=== PATIENT | female | born 1980 | race African-American/Black ===

== ENCOUNTER 2024-01-19 11:23 | Outpatient (CLI) | payer OTHER, SELFPAY ==
[2024-01-19 11:49] LABS: Hematocrit 27.4 % (37.0-47.0); Hemoglobin 7.9 g/dL (12.0-15.0); Immature Platelet Fraction Pct 9.4 % (0.9-11.2); Mean Corpuscular HGB Conc 28.8 g/dl (32-36); Mean Corpuscular Hemoglobin 18.9 pg (26-34); Mean Corpuscular Volume 65.7 fl (80-100); Platelet Count Result 316 k/mm3 (150-375); Red Blood Count 4.17 M/mm3 (4.2-5.4); Red Cell Distribution Width 26.7 % (11.5-14.5); White Blood Count 5.9 K/mm3 (4.5-10.0)
== END 2024-01-19 11:24 | disposition home or self-care (01) ==
LOC: ANHLAB 11:26
PROVIDERS: Visit Provider Nurse Practitioner Obstetrics & Gynecology
DX: N93.9 Abnormal uterine and vaginal bleeding, unspecified (principal)
CPT/HCPCS: 36415; 85027; 85055

== ENCOUNTER 2024-02-01 13:52 | Outpatient (CLI) | payer OTHER, SELFPAY ==
--- NOTE | ~2024-02-01 | US_ITS ---
EXAMINATION: US pelvic complete w TV DATE: 02/01/2024 14:51 INDICATION: Abnormal uterine and vaginal bleeding. TECHNIQUE: Multiple transabdominal and transvaginal sonographic images of the pelvis were obtained. COMPARISON: None. FINDINGS: TRANSABDOMINAL ULTRASOUND: The uterus measures 11.2 x 7.0 x 5.8 cm. There is no free fluid in the pelvis. TRANSVAGINAL ULTRASOUND: The endometrial complex measures 10 mm in thickness. There is a 2.6 cm intramural fibroid. There is a 4.4 cm submucosal fibroid. The right ovary measures 1.8 x 1.1 x 1.8 cm. The left ovary is not visual ized. IMPRESSION: 1. Uterine fibroids. Reviewed, dictated and finalized at location E. IMPRESSION: 1. Uterine fibroids.
== END 2024-02-01 13:53 | disposition home or self-care (01) ==
PROVIDERS: Visit Provider Nurse Practitioner Obstetrics & Gynecology
DX: D25.1 Intramural leiomyoma of uterus (principal); D25.0 Submucous leiomyoma of uterus; N93.9 Abnormal uterine and vaginal bleeding, unspecified
CPT/HCPCS: 76830; 76856

== ENCOUNTER 2024-02-15 16:23 | Outpatient (CLI) | payer OTHER, SELFPAY ==
[2024-02-15 17:34] LABS: Hematocrit 23.1 % (37.0-47.0); Immature Platelet Fraction Pct 6.1 % (0.9-11.2); Mean Corpuscular HGB Conc 27.7 g/dl (32-36); Mean Corpuscular Hemoglobin 17.9 pg (26-34); Mean Corpuscular Volume 64.5 fl (80-100); Platelet Count Result 411 k/mm3 (150-375); Red Blood Count 3.58 M/mm3 (4.2-5.4); Red Cell Distribution Width 25.2 % (11.5-14.5); White Blood Count 7.4 K/mm3 (4.5-10.0)
[2024-02-15 17:55] LABS: Hemoglobin 6.4 g/dL (12.0-15.0)
== END 2024-02-15 16:24 | disposition home or self-care (01) ==
LOC: ANHLAB 16:24
PROVIDERS: Visit Provider Obstetrics & Gynecology
DX: N93.9 Abnormal uterine and vaginal bleeding, unspecified (principal); D64.9 Anemia, unspecified
CPT/HCPCS: 36415; 85027; 85055; 86850; 86900; 86901; 86923

== ENCOUNTER 2024-02-17 07:44 | Outpatient (RCR) | payer OTHER, SELFPAY ==
[2024-02-17] VITALS (11 sets, daily range): BP systolic 139–150; BP diastolic 84–102; PULSE 75–87; RESP 12–16; TEMP 36.2–37.2; O2SAT 98–100
[2024-02-17] MEDS: FAMOTIDINE 20 MG TABLET PO (08:27)
[2024-02-17] MEDS: SODIUM CHLORIDE 0.9% IV 250 ML 30 ML IV CONT (08:27)
[2024-02-17] MEDS: ACETAMINOPHEN 325 MG TABLET 650 MG PO (08:27)
[2024-02-17] MEDS: HYDROCORTISONE SODIUM SUCCINATE 100 MG/2 ML VIAL 50 MG IV PUSH (08:31)
[2024-02-17 09:47] LABS: Hematocrit 23.9 % (37.0-47.0); Immature Platelet Fraction Pct 6.5 % (0.9-11.2); Mean Corpuscular HGB Conc 27.6 g/dl (32-36); Mean Corpuscular Hemoglobin 17.6 pg (26-34); Mean Corpuscular Volume 63.9 fl (80-100); Platelet Count Result 377 k/mm3 (150-375); Red Blood Count 3.74 M/mm3 (4.2-5.4); Red Cell Distribution Width 25.2 % (11.5-14.5); White Blood Count 5.5 K/mm3 (4.5-10.0)
[2024-02-17 10:12] LABS: Hemoglobin 6.6 g/dL (12.0-15.0)
--- NOTE | 2024-02-17 11:08 | ECG_ITS ---
[facility] [address] Test Date: 2024-02-17 Pat Name: Александр Cool Department: Room: Gender: F Stock Room Manager: NIRAJ : 1980 Requested By: Andrae Richards Order Number: [id number] Reading MD: Jose Bear D.O. Measurements Intervals [place] Rate: 77 P: 52 [place]: 175 QRS: 13 QRSD: 84 T: 12 QT: 417 QTc: 475 Interpretive Statements SINUS RHYTHM POSSIBLE LEFT ATRIAL ENLARGEMENT DELAYED PRECORDIAL R/S TRANSITION BASELINE ARTIFACT- I, III BORDERLINE ECG No previous ECG available for comparison Electronically Signed On 02-17-2024 11:49:36 CDT by Jose Bear D.O.
== END 2024-05-17 23:59 | disposition home or self-care (01) ==
LOC: ANHCPCTRAN 07:44
PROVIDERS: Visit Provider Obstetrics & Gynecology
DX: D50.0 Iron deficiency anemia secondary to blood loss (chronic) (principal); N93.9 Abnormal uterine and vaginal bleeding, unspecified
CPT/HCPCS: 36415; 36430; 85027; 85055; 86923; 93005; A9270; J1720; J7050; P9016

== ENCOUNTER 2024-02-21 07:43 | Outpatient (CLI) | payer OTHER, SELFPAY ==
[2024-02-21 08:02] LABS: Hematocrit 30.4 % (37.0-47.0); Hemoglobin 8.8 g/dL (12.0-15.0); Immature Platelet Fraction Pct 7.4 % (0.9-11.2); Mean Corpuscular HGB Conc 28.9 g/dl (32-36); Mean Corpuscular Hemoglobin 19.5 pg (26-34); Mean Corpuscular Volume 67.4 fl (80-100); Platelet Count Result 262 k/mm3 (150-375); Red Blood Count 4.51 M/mm3 (4.2-5.4); Red Cell Distribution Width 26.1 % (11.5-14.5); White Blood Count 6.3 K/mm3 (4.5-10.0)
== END 2024-02-21 07:44 | disposition home or self-care (01) ==
PROVIDERS: Visit Provider Obstetrics & Gynecology
DX: Z01.818 Encounter for other preprocedural examination (principal); D50.0 Iron deficiency anemia secondary to blood loss (chronic); D25.9 Leiomyoma of uterus, unspecified
CPT/HCPCS: 36415; 85027; 85055; 86850; 86900; 86901

== ENCOUNTER 2024-02-22 00:53 | Day surgery (SDC) | payer OTHER, SELFPAY ==
[2024-02-17 08:25] VITALS: BMI 38.1
--- NOTE | 2024-02-17 08:33 | PC.NURSE ---
Report to the Outpatient Waiting Room, entrance under the green pavilion located off [facility], at time _0600_ on date _[id number]_. Planned Procedure Time: _0730_. Time changes happen often and if your time is changed the preop area will call you the afternoon before. - You and your visitor will be asked to self-screen and do not enter if you have any COVID symptoms. - A mask is optional within the hospital at this time. Patients may have clear liquids (water, carbonated beverages, clear teas, apple juice) until 3 hours prior to surgery with a maximum of 20 ounces. - No food from midnight until time of surgery Take the following medications with a SIP of water the morning of surgery: __None DO NOT STOP ANY OF YOUR OTHER PRESCRIPTION MEDICATIONS PRIOR TO SURGERY ?EXCEPT THE FOLLOWING Medications to discontinue per physician None Date to take last dose Please no make-up, nail chinese, hairspray, perfume, deodorant, or body powder the day of surgery. No jewelry (including any body piercings) or valuables the day of surgery, leave them at home. Please take a shower or bath the night before, or the morning of, surgery with an antibacterial soap. Wear comfortable, loose fitting clothing. - Jewelry must be removed prior to entering the operating room. Rings and piercings that are not removed may be cut off. - The hospital will not accept responsibility for valuables. - Please leave all valuables, including medications, at home the day of surgery. If you are going home after surgery, a licensed contract driver must drive you home. - NO public transportation without another adult if you receive anesthesia. - We recommend that an adult stay with you for 24 hours following discharge. - We also recommend that you do not drive, make important decision, drink alcoholic beverages, or take any drugs that were not prescribed by your health care provider for at least 24 hours after your discharge time. Follow any additional instructions given to you from your surgeon. If you or anyone in your household have experienced Covid symptoms in the past week, please notify your surgeon or the nurse liaison at the phone number below for possible testing. Telephone instructions given to _Александр__and asked if any additional questions and then verbalized understanding. Patient advised to call surgeon office or pre surgery nurse liaison [phone] if any additional questions.
--- NOTE | 2024-02-21 15:34 | PM.IMHP ---
H&P: HPI History of Present Illness Date/Time: 02/21/24 15:34 PMFSH Past Medical History Medical History (Updated 02/22/24 @ 06:47 by Stevie Storey MD) delivery delivered Fibroid uterus Hypertension Iron deficiency anemia secondary to blood loss (chronic) Obesity Surgical History Surgical History H/O dilation and curettage History of section x 2 Family History Family History Father Hypertension Depression Mother Hypertension Cancer Sibling Depression Grandparent Cancer Grandparent Heart disease Social History Social History Smoking status: Never smoker Living arrangements: with family Spiritual care concerns: No Meds Home Medications and Allergies Home Medications Medication Instructions Recorded Confirmed Type amlodipine 10 mg tablet 10 mg PO HS 01/19/24 02/17/24 History ferrous sulfate 325 mg (65 mg 325 mg PO DAILY 01/19/24 02/17/24 History iron) tablet (Feosol) lisinopril 10 mg tablet 10 mg PO HS 01/19/24 02/17/24 History metronidazole 500 mg tablet 500 mg PO Q12H #14 tabs 02/17/24 Rx progesterone micronized 200 mg 200 mg PO DAILY 02/17/24 02/17/24 History capsule (Prometrium) Allergies Allergy/AdvReac Type Severity Reaction Status Date / Time No Known Allergies Allergy Verified 02/22/24 06:12
[2024-02-22] VITALS (8 sets, daily range): BP systolic 98–133; BP diastolic 66–90; PULSE 66–88; RESP 12–20; TEMP 36.1–36.9; O2SAT 96–99; BMI 37.4
[2024-02-22] MEDS: ACETAMINOPHEN 500 MG TABLET 1000 MG PO (06:42)
[2024-02-22] MEDS: KETOROLAC 15 MG/ML VIAL (*BKC) IV PUSH (06:42)
--- NOTE | 2024-02-22 06:46 | WPDANESEPPF ---
Anes - Initial Pre Proc Eval Procedure: Operation Date: 02/22/24 07:30 Proposed Procedures p Robotic Assisted Total Vaginal Hysterectomy with Bilateral Salpingectomy, Possible Bilateral Salpingo-oophorectomy - Александр Carmona MD Date/Time: 02/22/24 06:46 Surgeon: Александр Carmona MD Pre Op Diagnosis: symptomatic fibroid uterus,anemia Patient Data Age: 43 Gender: F Height: 1.6 m Weight: 95.8 kg Allergies Allergy/AdvReac Type Severity Reaction Status Date / Time No Known Allergies Allergy Verified 02/22/24 06:12 Home Medications Medication Instructions Recorded Confirmed Type amlodipine 10 mg tablet 10 mg PO HS 01/19/24 02/17/24 History ferrous sulfate 325 mg (65 mg 325 mg PO DAILY 01/19/24 02/17/24 History iron) tablet (Feosol) lisinopril 10 mg tablet 10 mg PO HS 01/19/24 02/17/24 History metronidazole 500 mg tablet 500 mg PO Q12H #14 tabs 02/17/24 Rx progesterone micronized 200 mg 200 mg PO DAILY 02/17/24 02/17/24 History capsule (Prometrium) Patient hx anesthesia problems: none Family hx anesthesia problems: none Results Review: All pre-operative results and documents have been reviewed as part of the pre-operative evaluation. [facility] Past Medical History Medical History (Updated 02/22/24 @ 06:47 by Stevie Storey MD) delivery delivered Fibroid uterus Hypertension Iron deficiency anemia secondary to blood loss (chronic) Obesity Surgical History Surgical History H/O dilation and curettage History of section x 2 Family History Family History Father Hypertension Depression Mother Hypertension Cancer Sibling Depression Grandparent Cancer Grandparent Heart disease Social History Social History Smoking status: Never smoker Living arrangements: with family Spiritual care concerns: No Anes - Eval Final PreProcedure Day of Procedure 02/22/24 06:46 Patient weight: obese Heart: regular rate and rhythm Lungs: clear to auscultation Airway: Mallampati scale class II Neurological: alert and oriented Last oral intake: >/= 8 hours ASA classification: II Emergent: no Anesthetic plan: proceed Anesthesia type and monitoring: general GIVS and standard monitoring Results Review: All pre-operative results and documents have been reviewed as part of the pre-operative evaluation. Informed Consent: The patient's anesthetic plan and its attendant risks and benefits were discussed with the patient/family/POA. Questions were solicited and answers provided to the satisfaction of the patient/family/POA.
[2024-02-22] MEDS: SCOPOLAMINE 1 MG PATCH 1 PATCH TRANSDERM (07:14)
[2024-02-22] MEDS: LACTATED RINGERS 1,000 ML 30 ML IV CONT ×2 (07:17→10:26)
--- NOTE | 2024-02-22 07:21 | WPDHPUPDATE1 ---
History and Physical Update Update Date/Time: 02/22/24 07:21 History and Physical has been reviewed, including an updated exam of the patient. There are NO changes in the patient's condition. Risks, benefits, and alternatives have been discussed and questions answered. Patient agrees to proceed with procedure. Since last visit she has received 2 units PRBC, follow up h/h 8.05/18. Will proceed with robotic assisted laparoscopic hysterectomy with bilateral salpingectomy, possible oophorectomy.
[2024-02-22] MEDS: ceFAZolin 2 GM/D5W 50 ML 2 GM/50 ML BAG IVPB (07:30)
[2024-02-22] MEDS: BUPivacaine HCL 0.5% 10 ML AMP 20 ML INFILTRATE (07:55)
--- NOTE | 2024-02-22 10:31 | P.OPB_ITS ---
Procedure Note - Brief Procedure Note - Brief Date of procedure: 02/22/24 symptomatic fibroid uterus,anemia Post-op diagnosis: Same Procedure performed: Robotic assisted laparoscopic hysterectomy with bilateral salpingectomy. Surgeon: Александр Carmona MD Spa Receptionist: Balwinder Anesthesia: GETA Findings: Enlarged uterus with subserosal and a large degenerating submucosal fibroid. Normal ovaries bilateral. Estimated blood loss (mL): 50 Urine output (mL): 200 Drains: No Packing: No Pathology: Yes (Uterus bivalved with cervix and right and left fallopian tubes) Complications: No immediate complications Condition: Stable Disposition: PACU
[2024-02-22] MEDS: fentaNYL CITRATE INJ (*CRX) 100 MCG/2 ML VIAL 25 MCG IV PUSH ×4 (10:48→11:34)
--- NOTE | 2024-02-22 11:44 | OBPPTRN ---
Patient transferred to post room #283 via stretcher. Support person present. Oriented to unit, room, information board, rooming in, admission packet and security measures. Patient verbalizes understanding.
[2024-02-22] MEDS: HYDROcodone/acetaminophen (*CRX) 5-325 MG TABLET 1 TAB PO ×2 (12:10→20:23)
[2024-02-22] MEDS: SIMETHICONE 80 MG TAB.CHEW PO ×3 (12:10→23:30)
[2024-02-22] MEDS: DEXTROSE 5%/LACTATED RINGERS 1,000 ML 125 ML IV CONT (12:33)
[2024-02-22] MEDS: KETOROLAC 30 MG/ML VIAL (*BKC) IV PUSH ×2 (13:14→20:22)
[2024-02-22] MEDS: MORPHINE SULFATE (*CRX) 4 MG/ML INJ IV PUSH (14:09)
[2024-02-22] MEDS: ceFAZolin 1 GM/NS 50 ML 1 GM/50 ML BAG IVPB ×2 (15:02→23:30)
[2024-02-22] MEDS: HYDROcodone/acetaminophen (*CRX) 10-325 MG TABLET 1 TAB PO (17:07)
[2024-02-22] MEDS: amLODIPine BESYLATE 5 MG TABLET 10 MG PO (20:23)
[2024-02-22] MEDS: lisinopriL 10 MG TABLET PO (20:23)
[2024-02-23 04:00] VITALS: BP 126/82; PULSE 74; RESP 18; TEMP 36.8; O2SAT 98
[2024-02-23] MEDS: KETOROLAC 30 MG/ML VIAL (*BKC) IV PUSH (04:06)
[2024-02-23] MEDS: HYDROcodone/acetaminophen (*CRX) 10-325 MG TABLET 1 TAB PO ×4 (04:10→19:41)
[2024-02-23 04:41] LABS: Basophils Percent Auto 0.2 % (0.2-1.2); Hematocrit 29.7 % (37.0-47.0); Hemoglobin 8.6 g/dL (12.0-15.0); Immature Granulocyte Absolute 0.05 K/mm3 (0.00-0.031); Immature Granulocyte Percent A 0.4 % (0-0.5); Immature Platelet Fraction Pct 9.6 % (0.9-11.2); Lymphocytes Percent Auto 13.5 % (18.3-44.2); Mean Corpuscular Hemoglobin 19.6 pg (26-34); Mean Corpuscular Volume 67.7 fl (80-100); Monocytes Percent Auto 8.2 % (2.6-8.5); Neutrophils Absolute Auto 9.8 K/mm3 (1.3-6.7); Neutrophils Percent Auto 77.7 % (45.5-73.1); Platelet Count Result 237 k/mm3 (150-375); Red Blood Count 4.39 M/mm3 (4.2-5.4); Red Cell Distribution Width 26.6 % (11.5-14.5); White Blood Count 12.6 K/mm3 (4.5-10.0)
[2024-02-23 05:07] LABS: Anisocytosis 2+; Hypochromasia 1+; Microcytosis 1+ (NORMAL); Platelet Estimate Adequate (Adequate); Schistocytes Rare
--- NOTE | 2024-02-23 07:55 | WPDANESPN ---
Anes - Prog Note Post-Op Date/Time: 02/23/24 07:55 Cardiovascular status: normal Respiratory status: normal Airway patency: baseline Mental status: baseline Post-Op hydration status: normal Vital Signs: Last Vital Signs Temp 36.8 C 02/23/24 04:00 Pulse 74 02/23/24 04:00 Resp 18 02/23/24 04:00 BP 126/82 02/23/24 04:00 Pulse Ox 98 02/23/24 04:00 O2 Del Method Room Air 02/22/24 19:00 O2 Flow Rate 10 02/22/24 10:47 Pain Score (VAS): 01/26 I/O: Intake & Output 02/22/24 02/22/24 02/23/24 15:59 23:59 07:59 Intake Total 150 50 850 Output Total 555 800 Balance -405 50 50 Laboratory Tests 02/23/24 04:18 02/23/24 04:18 WBC 12.6 H RBC 4.39 Hgb 8.6 L Hct 29.7 L MCV 67.7 L MCH 19.6 L MCHC 29.0 L RDW 26.6 H Plt Count 237 MPV TNP Immature Gran % (Auto) 0.4 Neut % (Auto) 77.7 H Lymph % (Auto) 13.5 L [place] % (Auto) 8.2 Eos % (Auto) 0.0 Baso % (Auto) 0.2 Lymph # (Auto) 1.70 [place] # (Auto) 1.0 H Eos # (Auto) 0.0 Baso # (Auto) 0.0 Abs Immat Gran (auto) 0.05 H Absolute Neuts (auto) 9.8 H Absolute Nucleated RBC 0.000 Nucleated RBC % 0.0 Platelet Estimate Adequate % Immature Plt Fraction 9.6 Hypochromasia 1+ Anisocytosis 2+ Microcytosis 1+ Schistocytes Rare Post-procedural complaints: none Patient Feedback: Patient satisfied with anesthetic care.
[2024-02-23 08:20] VITALS: BP 106/67; PULSE 71; RESP 18; TEMP 36.6; O2SAT 98
[2024-02-23] MEDS: FERROUS SULFATE 325 MG TABLET DR PO (08:54)
[2024-02-23] MEDS: ceFAZolin 1 GM/NS 50 ML 1 GM/50 ML BAG IVPB (08:54)
[2024-02-23] MEDS: HYDROcodone/acetaminophen (*CRX) 5-325 MG TABLET 1 TAB PO (08:54)
[2024-02-23] MEDS: SIMETHICONE 80 MG TAB.CHEW PO ×3 (08:54→19:41)
--- NOTE | 2024-02-23 09:54 | PM.GYNPNOP ---
TRUCK SALES REPRESENTATIVE - A/P Assessment and plan (1) Status post hysterectomy: Code(s): Z90.710 - Acquired absence of both cervix and uterus Status: Acute Assessment and Plan: postop day 1. Encourage ambulation. Encourage regular diet. Anticipate discharge later today. Discussed her surgery again with her. Hemoglobin stable. Postoperative Procedures: Procedures Operation Date: 02/22/24 07:30 Actual Procedure Side Surgeon p Robotic Assisted Total Vaginal Hysterectomy with Bilateral Salpingectomy Bilateral Александр Carmona MD Time Spent With Patient Time: Total time spent is greater than 50% in coordination of care (as documented) at patient's floor/unit and/or counseling patient: Time with patient: less than 15 minutes TRUCK SALES REPRESENTATIVE- PN:Subj Post-Op Subjective Date/time seen: 02/23/24 09:54 Interval history: She complains of gas pain. She has not ambulated. Catheter removed this morning. No nausea. Tolerated water. Review of Systems Review of Systems: All systems reviewed & are unremarkable except as noted in HPI and below Cardiovascular: Cardiovascular: Reports no additional cardiovascular complaints Respiratory: Respiratory: Reports no additional respiratory complaints Gastrointestinal: Gastrointestinal: Denies nausea and Denies vomiting Genitourinary: Genitourinary: Reports no additional female genitourinary complaints Musculoskeletal: Musculoskeletal: Reports no additional musculoskeletal complaints Exam Const: Orientation/consciousness: oriented to person, oriented to place and oriented to time Resp: Auscultation: clear to auscultation bilaterally Cardio: Rate: regular rate Rhythm: regular rhythm GI: GI Palp: Yes Soft to palpation Auscultation: normal bowel sounds Other: Good bowel sounds throughout. We distended. Incisions intact appropriate tenderness no drainage. Neuro: General: oriented to person, oriented to place and oriented to time Extrem: General: no calf tenderness Psych: Mental Status: mental status grossly normal TRUCK SALES REPRESENTATIVE - PN: Obj Data Vital Signs Vital Signs: Vital Signs - 24 hr 02/22/24 10:32 02/22/24 10:47 02/22/24 11:02 Temperature 97.6 F Pulse Rate 66 66 69 Respiratory Rate 20 20 20 Blood Pressure 98/66 L 121/73 115/72 Pulse Oximetry 98 97 99 Oxygen Delivery Simple Face Mask Simple Face Mask Room Air Oxygen Flow Rate 10 10 02/22/24 11:17 02/22/24 11:32 02/22/24 11:50 Temperature 97 F L Pulse Rate 70 68 75 Respiratory Rate 17 12 16 Blood Pressure 121/82 122/79 132/90 Pulse Oximetry 98 99 96 Oxygen Delivery Room Air Room Air Oxygen Flow Rate 02/22/24 12:00 02/22/24 17:08 02/22/24 19:00 Temperature 98.5 F Pulse Rate 88 Respiratory Rate 18 Blood Pressure 133/90 Pulse Oximetry 97 Oxygen Delivery Room Air Room Air Oxygen Flow Rate 02/22/24 20:00 02/23/24 04:00 02/23/24 08:20 Temperature 98.3 F 98.2 F 97.8 F Pulse Rate 79 74 71 Respiratory Rate 18 18 18 Blood Pressure 122/78 126/82 106/67 Pulse Oximetry 98 98 98 Oxygen Delivery Oxygen Flow Rate Intake/Output Intake/Output: Intake & Output 02/20/24 02/21/24 02/22/24 02/23/24 23:59 23:59 23:59 23:59 Intake Total 200 1750 Output Total 555 800 Balance -355 950 Meds/Results Medications: Active Medications Generic Name Dose Route Start Last Admin Trade Name Freq PRN Reason Stop Dose Admin Hydrocodone Bitart/Acetaminophen 1 tab 02/22/24 10:22 02/23/24 08:54 Hydrocodone/Acetaminophen (*Crx) 5-325 Mg Tablet PO 1 tab Q3H PRN Administration Pain Rated 5 or Less Hydrocodone Bitart/Acetaminophen 1 tab 02/22/24 10:22 02/23/24 04:10 Hydrocodone/Acetaminophen (*Crx) 10-325 Mg Tablet PO 1 tab Q3H PRN Administration Pain Rated 6 or Greater Amlodipine Besylate 10 mg 02/22/24 21:00 02/22/24 20:23 Amlodipine Besylate 5 Mg Tablet PO 10 mg HS PIPO Administration Ferrous Sulfate 325 mg 02/23/24 09:00 06
--- NOTE | 2024-02-23 09:59 | W.PM.PROC2 ---
Procedure Note - Detailed Date of Procedure 02/23/24 Pre-op Diagnosis symptomatic fibroid uterus,anemia Post-op Diagnosis Same Procedure Performed Laparoscopic robotic assisted vaginal hysterectomy with bilateral salpingectomy Surgeon Александр Carmona MD Mining Support Worker Balwinder Anesthesia General Indications symptomatic fibroid uterus severe anemia abnormal uterine bleeding Findings large uterus with sub serosal intramural and large submucosal degenerating fibroid. Normal ovaries bilaterally normal fallopian tubes. Description of Procedure After informed consent was obtained she was taken to the operating room and general endotracheal anesthesia was administered. She was placed in low lithotomy position. An exam under anesthesia was performed. Uterus mildly enlarged retroverted, no adnexal masses palpated. She was and prepped and draped in sterile fashion. Olmedo catheter placed in bladder. Attention was turned to the vagina speculum was inserted. Single-tooth tenaculum placed on anterior lip of the cervix the uterus sounded to 8 cm. The cervix was dilated to a 8 Holman dilator. A size 8 uterine manipulator was inserted and secured. A size 3.0 colp cup was secured in the vagina. Then attention was turned to the abdomen with new sterile gloves. .25% marcaine injected subcutaneously. An incision was made horizontal 2 cm above the umbilicus. The subcutaneous tissue was dissected with S retractors. Anterior and posterior fascia grasped with Macy clamp and incised. Peritoneum entered. No adhesions palpated. The fascia sutures were secured with 0 vicryl. The robotic hysson port and camera inserted into abdomen and secured to fascial sutures. A Pneumoperitoneum of 15 mm per mercury was obtained. No abdominal or pelvic adhesions noted. A small incision was made approximately 6 cm lateral to the port on the left side of the port. A size 8mm robotic port was inserted under laparoscopic visualization into the abdomen on the left side. Superior to this an incision was made and another port was inserted under laparoscopic visualization. Another robotic port was inserted on the right side of the abdomen and the administrative sales assistant port was inserted under visualization. Attention was turned to the right round ligament which was ligated with the vessel sealer. The anterior leaf of the broad ligament was dissected. the right fallopian tube was ligated from the broad ligament. Adhesions of the bladder on the right side were dissected from the lower uterine segment. The right side of the bladder was dissected from the lower uterine segment and upper cervix. The right ovarian ligament was ligated with the vessel sealer. The a posterior leaf of the broad ligament was further dissected. The ascending uterine vessels on the right were cauterized. The uterine vessels were ligated. Attention was turned to the left round ligament which was ligated and the anterior leaf of the broad ligament was dissected anteriorly. The left fallopian tube was ligated from the broad ligament. The left ovarian ligament was ligated. The ascending uterine vessels were ligated. The rest of the vesicouterine peritoneum was dissected off of the uterus. The uterine arteries were ligated. The cardinal ligaments were ligated. This was done on both sides. The uterus was quadrant valved. During this and then the large submucosal fibroid was noted and also noted to have necrotic material upon entering the submucosal fibroid. An incision was made anterior colpotomy incision was made and this was carried around until the cervix was removed from the vagina. The uterus and cervix were removed through the vagina. The vaginal cuff was closed in a running fashion with 0 V lock suture. Hemostasis was noted. The pelvis was irrigated. Hemostasis noted. Hemoderm was applied in the pelvis. The patient was taken out of Trendelenburg position. The pneumoperitoneum was released and the ports were removed.
[2024-02-23] MEDS: IBUPROFEN 600 MG TABLET PO (13:32)
[2024-02-23] MEDS: BISACODYL 10 MG SUPPOSITORY (16:51)
== END 2024-02-23 19:48 | disposition home or self-care (01) ==
LOC: ANHSURGERY 05:56 → ANHOB2 11:50
PROVIDERS: Visit Provider Obstetrics & Gynecology
PROC: (CPT 58554; principal; 2024-02-22 07:30)
DX: D25.0 Submucous leiomyoma of uterus (principal); D25.1 Intramural leiomyoma of uterus; D50.0 Iron deficiency anemia secondary to blood loss (chronic); N93.9 Abnormal uterine and vaginal bleeding, unspecified; I10 Essential (primary) hypertension; E66.9 Obesity, unspecified; Z68.37 Body mass index [BMI] 37.0-37.9, adult
CPT/HCPCS: 58554; S2900; 36415; 85025; 85055; 88307; 99199; A9270; J0330; J0690; J1100; J1170; J1200; J1885; J2250; J2270; J2405; J2704; J3010; J7030; J7120; J7121

== ENCOUNTER 2024-03-27 11:40 | Outpatient (CLI) | payer OTHER, SELFPAY ==
[2024-03-27 12:25] LABS: Hematocrit 34.2 % (37.0-47.0); Hemoglobin 9.8 g/dL (12.0-15.0); Immature Platelet Fraction Pct 15.2 % (0.9-11.2); Mean Corpuscular HGB Conc 28.7 g/dl (32-36); Mean Corpuscular Hemoglobin 18.7 pg (26-34); Mean Corpuscular Volume 65.1 fl (80-100); Platelet Count Result 260 k/mm3 (150-375); Red Blood Count 5.25 M/mm3 (4.2-5.4); Red Cell Distribution Width 23.7 % (11.5-14.5); White Blood Count 4.9 K/mm3 (4.5-10.0)
== END 2024-03-27 11:41 | disposition home or self-care (01) ==
LOC: ANHLAB 11:43
PROVIDERS: Visit Provider Obstetrics & Gynecology
DX: D64.9 Anemia, unspecified (principal)
CPT/HCPCS: 36415; 85027; 85055